=== PATIENT | female | born 1965 | race Caucasian/White ===

== ENCOUNTER 2016-07-04 07:18 | Emergency (ER) | payer OTHER | END 2016-07-04 09:02 | disposition home or self-care (01) | LOC: ER 07:18 | DX: J32.9 Chronic sinusitis, unspecified (principal); J06.9 Acute upper respiratory infection, unspecified; F17.210 Nicotine dependence, cigarettes, uncomplicated; Z79.899 Other long term (current) drug therapy | CPT/HCPCS: 87070; 87400; 87880; 99283 ==